=== PATIENT | male | born 1975 | race African-American/Black ===

== ENCOUNTER 2018-07-03 21:39 | Emergency (ER) | payer BC, OTHER ==
[~2018-07-03] VITALS: Ht 195.6 cm; Wt 124.7 kg
[~2018-07-03 21:39] MED LIST: ALBUTEROL SULF8.5 GM INH; AZITHROMYCIN250 MG ORAL; PREDNISONE20 MG ORAL
--- NOTE | 2018-07-03 22:05 | NUR ---
ED Nurse Note: Pt arrived ED from home, c/o left foot pain 7/10 and swollen with unknown reason for 2 days. Pt is A/O X 4. Vital signs stable at this time, waiting for orders.
--- NOTE | 2018-07-03 22:08 | Emergency Room Report ---
History of Present Illness General Chief Complaint: Lower Extremity Injury Source: Patient Present Illness HPI Patient present with complaints of pain to his left foot reports that the weekend he was [place] a water park with his family At that time there was not much discomfort later in the evening he did have some pain at the base of the left large toe He placed a strap on yesterday and after this he has noticed increased swelling on the foot and continued pain at the base of the large toe Denies any other obvious fall or trauma denies any ankle or knee pain he reports that he did have a foot injury on one of his feet many years ago he is not sure which one however did not have any previous surgery Also reports that he has had previous discomfort to the left large toe in the past on several occasions however they have passed without significant swelling Allergies: Coded Allergies: No Known Allergies (Unverified , 09/22/14) Patient History Past Medical History: see triage record Pertinent Family History: none Reviewed Nursing Documentation: PMH: Agreed; PSxH: Agreed Review of Systems All Other Systems: negative except mentioned in HPI Physical Exam Vital Signs Date Time Temp Pulse Resp B/P (MAP) Pulse Ox O2 Delivery O2 Flow Rate FiO2 07/03/18 21:42 98.1 86 16 123/79 97 Room Air Sp02 EP Interpretation: reviewed, normal General Appearance: well appearing, no apparent distress Head: normocephalic, atraumatic Eyes: bilateral eye PERRL, bilateral eye EOMI ENT: normal pharynx Neck: supple Respiratory: lungs clear, normal breath sounds Cardiovascular #1: regular rate, rhythm Gastrointestinal: non tender Musculoskeletal: swelling - Noted to the left foot on the dorsal aspect patient also has discomfort on palpation of the base of the left large toe, appropriate Refills neurovascularly intact, no obvious abscess or fluctuance Neurologic: alert, oriented x3 Skin: other - As noted above Lymphatic: no adenopathy Medical Decision Making Diagnostic Impression: Primary Impression: Gout ER Course And the patient's history and presentation given the recent History of being at the water park initial x-ray imaging is obtained no obvious acute pathology is seen Patient's location and type of description is clinically fairly consistent with gout patient treated accordingly in the emergency room and requires close outpatient follow-up Other X-Ray Diagnostic Results Other X-Ray Diagnostic Results : X-Ray ordered: Left foot # of Views/Limited Vs Complete: 3 View Indication: Pain EP Interpretation: Yes Interpretation: no dislocation, no soft tissue swelling, no fractures Impression: No acute disease Electronically Signed by: Ann Brian DO Last Vital Signs Date Time Temp Pulse Resp B/P (MAP) Pulse Ox O2 Delivery O2 Flow Rate FiO2 07/03/18 21:42 98.1 86 16 123/79 97 Room Air Status: improved Disposition: HOME, SELF-CARE Condition: Improved Scripts Naproxen* (NAPROSYN*) 250 Mg Tablet 250 MG ORAL TWICE A DAY, #20 TAB 0 Refills Prov: Ann Brian DO 07/03/18 Colchicine (Colchicine) 0.6 Mg Capsule 0.6 MG PO DAILY, #10 CAP Prov: Ann Brian DO 07/03/18 Additional Instructions: Patient is provided with the discharge instructions notified to follow up with primary doctor in the next 2-3 days otherwise return to the er with any worsening symptoms. Please note that this report is being documented using [employer] technology. This can lead to erroneous entry secondary to incorrect interpretation by the dictating instrument. Ann Brian DO Jul 03, 2018 22:08
[2018-07-03] MEDS ORDERED: NAPROXEN250 MG ORAL (23:35)
[2018-07-03] MEDS ORDERED: COLCHICINE0.6 M1 PO (23:35)
[2018-07-03 23:45] VITALS: BP 123/79
--- NOTE | 2018-07-03 23:45 | NUR ---
ER DISCHARGE NOTE: Patient is cleared to be discharged per Dr. Brian. X-ray done to left foot, no fracture was found at this time, post -op shose and crutches provided. Pt is A/O x 4 on room air with stable vital signs. Pt was given D/C and prescription instructions and was able to verbalize understanding. Pt's ID band removed. Pt is able to ambulate with crutches well and pt took all belongings.
--- NOTE | 2018-07-04 10:10 | Diagnostic Imaging Report ---
Indication: Pain and swelling Technique: 3 views left foot Comparison: none Findings: There is soft tissue swelling medial to the first metatarsal head. No radiopaque foreign body No acute fractures. No dislocations. There is hammertoe deformity of the second through fifth digits. Impression: Soft tissue swelling. No acute bony trauma This agrees with the preliminary interpretation provided overnight by [facility].
== END 2018-07-03 23:45 | disposition home or self-care (01) ==
LOC: EMR 22:10
DX: M10.9 Gout, unspecified (principal)
CPT/HCPCS: 99283

== ENCOUNTER 2018-10-01 00:39 | Emergency (ER) | payer OTHER ==
[~2018-10-01] VITALS: Ht 195.6 cm; Wt 117.9 kg
[~2018-10-01 00:39] MED LIST changes: +COLCHICINE0.6 M1 PO; +DEBROX15 M1 BOTH EARS; +NAPROXEN250 MG ORAL; +NKM
[2018-10-01 01:00] VITALS: BP 122/76
--- NOTE | 2018-10-01 01:00 | NUR ---
ED Nurse Note: Pt ambulated to ED from home c/o tingling in his neck, pt was sleeping and was woken up by tingling/pain, A&Ox4, VSS
--- NOTE | 2018-10-01 01:20 | NUR ---
ER DISCHARGE NOTE: Patient is cleared to be discharged per ERMD, pt is aox4, on room air, with stable vital signs. pt was given dc and prescription instructions, pt was able to verbalize understanding, pt id band removed. pt is able to ambulate with steady gait. pt took all belongings.
--- NOTE | 2018-10-01 01:42 | Emergency Room Report ---
History of Present Illness General Chief Complaint: General Complaint Source: Patient Present Illness HPI Patient 43-year-old male presented after increased neck discomfort. Patient had onset of symptoms earlier in the day. He reports having no symptoms currently. Patient denies any numbness or weakness currently. He denies any prior medical history other than gout. He denies any recent alcohol use. Allergies: Coded Allergies: No Known Allergies (Unverified , 09/22/14) Patient History Past Medical History: see triage record Reviewed Nursing Documentation: PMH: Agreed; PSxH: Agreed Nursing Documentation-PM Past Medical History: No Stated History Hx Cardiac Problems: No - gout Physical Exam Vital Signs Date Time Temp Pulse Resp B/P (MAP) Pulse Ox O2 Delivery O2 Flow Rate FiO2 10/01/18 00:57 97.3 88 16 109/76 (87) 98 Room Air General Appearance: well appearing, no apparent distress, alert, GCS 15 Head: normocephalic, atraumatic ENT: hearing grossly normal, normal voice Neck: full range of motion, supple Respiratory: no respiratory distress, speaking full sentences Cardiovascular #1: normal inspection Gastrointestinal: normal inspection, normal bowel sounds, non tender Musculoskeletal: normal inspection, no calf tenderness Neurologic: normal inspection, alert, oriented x3, responsive, desk assistant III-XII nml as tested, normal gait Psychiatric: normal inspection, mood/affect normal Skin: no rash Medical Decision Making Diagnostic Impression: Primary Impression: Paresthesia ER Course Patient presented for paresthesia. Differential diagnosis include was not limited to dehydration, cervical radiculopathy, myocardial infarction, multiple sclerosis among others. Patient has a benign exam and does not appear to require any further imaging or laboratory testing at this time patient does not appear to be in any acute distress. He is nonfocal neurologic exam. Patient appears to be stable for outpatient evaluation. Patient was advised to have outpatient stress testing performed. He is advised to return if he has any worsening condition or other concerns. EKG interpreted by me showed normal sinus rhythm without acute ST or T wave changes rate of 69. EKG Diagnostic Results Rate: normal - 69 Rhythm: NSR ST Segments: no acute changes Last Vital Signs Date Time Temp Pulse Resp B/P (MAP) Pulse Ox O2 Delivery O2 Flow Rate FiO2 10/01/18 00:57 97.3 88 16 109/76 (87) 98 Room Air Status: improved Disposition: HOME, SELF-CARE Condition: Stable Referrals: [facility]ERR[facility] (PCP) Patient Instructions: [place], [id number] Eduardo Calderon MD Oct 01, 2018 01:42
--- NOTE | 2018-10-01 13:08 | Cardiology Report ---
APPROVED REPORT EKG Measurement Heart [id number] Normal sinus rhythm with sinus arrhythmia Rightward axis Borderline ECG
== END 2018-10-01 01:30 | disposition home or self-care (01) ==
LOC: EMR 01:22
DX: R20.2 Paresthesia of skin (principal)
CPT/HCPCS: 93005; 99283